=== PATIENT | female | born 1960 | race Caucasian/White ===

== ENCOUNTER 2016-09-06 07:38 | Outpatient (CLI) | payer BC | END 2016-09-06 19:05 | disposition home or self-care (01) | LOC: SMA 07:38 | PROVIDERS: ATTEND Family Medicine | DX: N63 Unspecified lump in breast (principal) | CPT/HCPCS: 76642; G0204; G0206 ==

== ENCOUNTER 2017-10-08 08:58 | Outpatient (CLI) | payer BC | END 2017-10-08 20:47 | disposition home or self-care (01) | LOC: SMA 08:58 | PROVIDERS: ATTEND Family Medicine | DX: Z12.31 Encounter for screening mammogram for malignant neoplasm of breast (principal) | CPT/HCPCS: 77067 ==

== ENCOUNTER 2019-01-22 10:43 | Outpatient (CLI) | payer BC | END 2019-01-22 21:14 | disposition home or self-care (01) | LOC: SMA 10:43 | PROVIDERS: ATTEND Family Medicine | DX: Z12.31 Encounter for screening mammogram for malignant neoplasm of breast (principal) | CPT/HCPCS: 77067 ==

== ENCOUNTER 2020-03-04 10:20 | Outpatient (CLI) | payer BC | END 2020-03-04 19:54 | disposition home or self-care (01) | LOC: SMA 10:20 | PROVIDERS: ATTEND Family Medicine | DX: Z12.31 Encounter for screening mammogram for malignant neoplasm of breast (principal); N64.89 Other specified disorders of breast; K59.00 Constipation, unspecified; R10.84 Generalized abdominal pain | CPT/HCPCS: 74021; 77067 ==

== ENCOUNTER 2021-12-12 07:59 | Outpatient (CLI) | payer BC | END 2021-12-12 20:22 | disposition home or self-care (01) | LOC: SMA 07:59 | PROVIDERS: ATTEND Nurse Practitioner Family | DX: Z12.31 Encounter for screening mammogram for malignant neoplasm of breast (principal) | CPT/HCPCS: 77067 ==

== ENCOUNTER 2023-01-04 13:19 | Outpatient (CLI) | payer BC | END 2023-01-04 19:19 | disposition home or self-care (01) | LOC: SMA 13:19 | PROVIDERS: ATTEND Family Medicine | DX: Z12.31 Encounter for screening mammogram for malignant neoplasm of breast (principal) | CPT/HCPCS: 77067 ==